=== PATIENT | male | born 2000 | race Caucasian/White ===

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

== ENCOUNTER 2024-11-04 12:50 | Emergency (ER) | payer OTHER ==
[2024-11-04 13:29] LABS: #Basophils 0.06 10x3/uL (0.0-0.2); %Basophils 0.8 % (0.0-1.0); %Eosinophils 1.5 % (0.0-10.0); %Lymphocytes 39.2 % (21.0-51.0); %Monocytes 9.2 % (0.0-10.0); %Neutrophils 49.2 % (42.0-75.0); Hematocrit 45.7 % (42.0-52.0); Hemoglobin 15.3 g/dL (14.0-18.0); Mean Corpuscular HGB CONC 33.5 g/dL (32.0-36.0); Mean Corpuscular Hemoglobin 29.5 pg (27.0-31.0); Mean Corpuscular Volume 88.1 fL (78.0-98.0); Mean Platelet Volume 11.2 fL (7.4-10.4); Platelet Count 264 10x3/uL (130-400); RBC Distribution Width 12.7 % (11.5-14.5); Red Blood Cell (RBC) Count 5.19 mill/uL (4.70-6.10)
[2024-11-04] MEDS ORDERED: LORazepam 2 MG/ML SYR.(CARPUJECT) ONE (13:32)
[2024-11-04 13:52] LABS: ALT (SGPT) 18 U/L (8-55); AST (SGOT) 25 U/L (5-34); Albumin 5.1 g/dL (3.5-5.0); Alkaline Phosphatase 82 U/L (40-110); Anion Gap 16 mmol/L (10-20); BUN (Urea Nitrogen) 14 mg/dL (8.9-20.6); Bilirubin, Total 0.7 mg/dL (0.2-1.2); Calc. Creatinine Clearance 0 mL/min (70-130); Calcium 10.2 mg/dL (7.8-10.44); Carbon Dioxide 24 mmol/L (22-29); Chloride 105 mmol/L (98-107); Estimated GFR 95; Globulin 3.6 g/dL (2.4-3.5); Glucose 97 mg/dL (70-105); Potassium 3.6 mmol/L (3.5-5.1); Protein, Total 8.7 g/dL (6.0-8.3); Sodium 141 mmol/L (136-145)
[2024-11-04 13:57] LABS: Troponin I Less than 0.010 ng/mL (< 0.028)
[2024-11-04 14:13] LABS: Amphetamine Not Detected (NotDetected); Barbiturates Screen Not Detected (NotDetected); Benzodiazepine Screen Not Detected (NotDetected); Cocaine Metabolite Screen Not Detected (NotDetected); Methadone Not Detected (NotDetected); Methamphetamine Not Detected (NotDetected); Opiate Screen Not Detected (NotDetected); Oxycodone Screen Not Detected (NotDetected); Phencyclidine (PCP) Not Detected (NotDetected); THC/Cannabinoid Screen Not Detected (NotDetected); Tricyclic Screen Not Detected (NotDetected)
== END 2024-11-04 16:07 | disposition home or self-care (01) ==
LOC: ERS 12:50
DX: F10.239 Alcohol dependence with withdrawal, unspecified (principal); I95.1 Orthostatic hypotension; F17.210 Nicotine dependence, cigarettes, uncomplicated; F17.290 Nicotine dependence, other tobacco product, uncomplicated
CPT/HCPCS: 71045; 80053; 80306; 83690; 83880; 84443; 84484; 85025; 85379; 93005; 94760; 96361; 96374; J2060

== ENCOUNTER 2024-11-05 09:49 | Emergency (ER) | payer OTHER ==
[2024-11-05 12:08] LABS: #Basophils 0.04 10x3/uL (0.0-0.2); %Basophils 0.8 % (0.0-1.0); %Eosinophils 1.6 % (0.0-10.0); %Monocytes 8.9 % (0.0-10.0); %Neutrophils 62.7 % (42.0-75.0); Hematocrit 41.2 % (42.0-52.0); Hemoglobin 14.1 g/dL (14.0-18.0); Mean Corpuscular HGB CONC 34.2 g/dL (32.0-36.0); Mean Corpuscular Hemoglobin 30.1 pg (27.0-31.0); Platelet Count 234 10x3/uL (130-400); RBC Distribution Width 12.9 % (11.5-14.5); Red Blood Cell (RBC) Count 4.68 mill/uL (4.70-6.10)
[2024-11-05 12:28] LABS: ALT (SGPT) 17 U/L (8-55); AST (SGOT) 23 U/L (5-34); Albumin 4.3 g/dL (3.5-5.0); Alkaline Phosphatase 67 U/L (40-110); Anion Gap 11 mmol/L (10-20); BUN (Urea Nitrogen) 8 mg/dL (8.9-20.6); Bilirubin, Total 0.6 mg/dL (0.2-1.2); Calc. Creatinine Clearance 0 mL/min (70-130); Calcium 9.4 mg/dL (7.8-10.44); Carbon Dioxide 24 mmol/L (22-29); Chloride 107 mmol/L (98-107); Estimated GFR 122; Globulin 3.3 g/dL (2.4-3.5); Glucose 88 mg/dL (70-105); Potassium 4.3 mmol/L (3.5-5.1); Protein, Total 7.6 g/dL (6.0-8.3); Sodium 138 mmol/L (136-145)
[2024-11-05 12:29] LABS: Troponin I Less than 0.010 ng/mL (< 0.028)
[2024-11-05] MEDS ORDERED: Thiamine HCl 200 MG/2 ML VIAL ONE (12:47)
== END 2024-11-05 13:40 | disposition home or self-care (01) ==
LOC: ERS 09:49
DX: R00.2 Palpitations (principal); F17.210 Nicotine dependence, cigarettes, uncomplicated; F17.290 Nicotine dependence, other tobacco product, uncomplicated
CPT/HCPCS: 36415; 80053; 84484; 85025; 93005; 96374; J3411

== ENCOUNTER 2024-12-10 20:33 | Emergency (ER) | payer OTHER ==
[2024-12-10 21:48] LABS: #Basophils 0.04 10x3/uL (0.0-0.2); %Basophils 0.6 % (0.0-1.0); %Lymphocytes 20.5 % (21.0-51.0); %Monocytes 10.8 % (0.0-10.0); Hemoglobin 14.4 g/dL (14.0-18.0); Mean Corpuscular HGB CONC 33.5 g/dL (32.0-36.0); Mean Corpuscular Volume 89.6 fL (78.0-98.0); Mean Platelet Volume 11.2 fL (7.4-10.4); Platelet Count 254 10x3/uL (130-400); RBC Distribution Width 12.4 % (11.5-14.5)
[2024-12-10 22:05] LABS: ALT (SGPT) 14 U/L (Less than 45); AST (SGOT) 27 U/L (11-34); Albumin 4.6 g/dL (3.1-4.5); Alkaline Phosphatase 87 U/L (40-110); Anion Gap 17 mmol/L (10-20); BUN (Urea Nitrogen) 14 mg/dL (8.9-20.6); Bilirubin, Total 0.3 mg/dL (0.3-1.2); Calc. Creatinine Clearance 0 mL/min (70-130); Calcium 9.8 mg/dL (7.8-10.44); Carbon Dioxide 26 mmol/L (22-29); Chloride 104 mmol/L (98-107); Estimated GFR 89; Globulin 3.5 g/dL (2.4-3.5); Glucose 87 mg/dL (70-105); Potassium 3.9 mmol/L (3.5-5.1); Protein, Total 8.1 g/dL (6.0-8.3); Sodium 143 mmol/L (136-145)
[2024-12-10 22:10] LABS: Troponin I Less than 0.010 ng/mL (< 0.028)
== END 2024-12-10 22:30 | disposition home or self-care (01) ==
LOC: ERS 20:33
DX: R00.2 Palpitations (principal); F41.9 Anxiety disorder, unspecified; F17.210 Nicotine dependence, cigarettes, uncomplicated; F17.290 Nicotine dependence, other tobacco product, uncomplicated
CPT/HCPCS: 36415; 80053; 84484; 85025; 93005; 99285